=== PATIENT | female | born 1945 | race Caucasian/White ===

== ENCOUNTER → 2016-09-05 | Outpatient (CLI) | payer MEDICARE, BC ==
--- NOTE | 2016-09-05 09:48 | RAD ---
Indication pain at the base of the thumb. AP oblique and lateral views of the right thumb were obtained. No acute finding is seen. There are significant degenerative changes at the first carpometacarpal joint.
== END | disposition home or self-care (01) ==
LOC: DXRAD 09:10
PROVIDERS: ATTEND Orthopaedic Surgery
DX: M79.644 Pain in right finger(s) (principal)
CPT/HCPCS: 73140